=== PATIENT | female | born 1935 | race Caucasian/White ===

== ENCOUNTER 2024-05-29 10:30 | Emergency (ER) | payer MEDICARE, OTHER ==
[~2024-05-29] VITALS: Ht 165.1 cm; Wt 63.5 kg
[2024-05-29] MEDS ORDERED: SERT-439 PO (10:46)
[2024-05-29] MEDS ORDERED: ROSU20TA2 PO (10:46)
[2024-05-29] MEDS ORDERED: FENO145T21 PO (10:46)
[2024-05-29] MEDS ORDERED: APIX5TAB PO (10:46)
[2024-05-29] MEDS ORDERED: METF-886 PO (10:46)
[2024-05-29] MEDS ORDERED: FAMO40TA7 PO (10:46)
[2024-05-29] MEDS ORDERED: AMLO2.5T4 PO (10:46)
[2024-05-29] MEDS ORDERED: LOSA50TA39 PO (10:46)
[2024-05-29] MEDS: OXYCODONE/APAP 5-325 MG TABLET PO ONE (11:23)
[2024-05-29 11:26] LABS: BASOPHILS % (AUTO) 0.4 % (0.0-2.0); EOSINOPHILS # (AUTO) 0.1 K/uL (0.0-0.7); EOSINOPHILS % (AUTO) 1.4 % (0.0-7.0); HEMATOCRIT 39.3 % (31.2-41.9); HEMOGLOBIN 12.9 g/dL (10.9-14.3); LYMPHOCYTES # (AUTO) 1.6 K/uL (0.8-4.8); MEAN CORPUSCULAR HEMOGLOBIN 28.6 uug (24.7-32.8); MEAN CORPUSCULAR HGB CONC 33 g/dL (32.3-35.6); MEAN CORPUSCULAR VOLUME 86.7 fL (75.5-95.3); MONOCYTES # (AUTO) 0.4 K/uL (0.1-1.30); MONOCYTES % (AUTO) 7.1 % (0.0-11.0); NEUTROPHILS # (AUTO) 4.1 K/uL (1.8-8.9); NEUTROPHILS % (AUTO) 66.1 % (38.5-71.5); PLATELET COUNT (AUTO) 195 K/uL (179-408); RED BLOOD CELL COUNT(AUTO) 4.53 MIL/uL (3.63-4.92); RED CELL DISTRIBUTION WIDTH 14.2 % (12.3-17.7); WHITE BLOOD COUNT (AUTO) 6.3 K/uL (3.8-11.8)
[2024-05-29 11:29] LABS: ERYTHROCYTE SEDIMENTATION RATE 15 MM/HR (0-20)
[2024-05-29 11:38] LABS: CALCIUM 9.2 mg/dL (8.5-10.1); CARBON DIOXIDE 30 mmol/L (21-32); CHLORIDE 102 mmol/L (98-107); CREATININE 0.8 mg/dL (0.6-1.3); GLUCOSE 195 mg/dL (74-106); POTASSIUM 4.8 mmol/L (3.5-5.1); SODIUM SERUM 139 mmol/L (136-145); UREA NITROGEN, BLOOD 17 mg/dL (7-18)
[2024-05-29 11:42] LABS: MAGNESIUM 2.2 mg/dL (1.8-2.4)
[2024-05-29 13:00] LABS: *BILIRUBIN,URIN NEGATIVE (NEGATIVE); *BLOOD, URINE NEGATIVE (NEGATIVE); *CLARITY,URINE CLEAR (CLEAR); *COLOR,URINE YELLOW (YELLOW); *KETONES,URINE NEGATIVE (NEGATIVE); *PROTEIN,URINE NEGATIVE (NEGATIVE); *UROBILINOGEN,URINE 0.2 E.U./dl (NORMAL); LEUKOCYTE ESTERASE ,URINE NEGATIVE (NEGATIVE); NITRITE, URINE NEGATIVE (NEGATIVE); UGLUCOSE NEGATIVE (NEGATIVE)
[2024-05-29] MEDS ORDERED: ATEN25TA PO (13:24)
[2024-05-29] MEDS ORDERED: DILTIAZEM HCL 25 MG IV ONE (14:36)
[2024-05-29] MEDS: DILTIAZEM HCL 25 MG IV IV ONE (14:40)
[2024-05-29 15:11] VITALS: BP 101/76; O2SAT 96
== END 2024-05-29 15:13 | disposition home or self-care (01) ==
LOC: ER 10:30
DX: I48.91 Unspecified atrial fibrillation (principal); R51.9 Headache, unspecified; R11.0 Nausea; E11.9 Type 2 diabetes mellitus without complications; F32.A Depression, unspecified; Z79.01 Long term (current) use of anticoagulants; Z79.84 Long term (current) use of oral hypoglycemic drugs; Z79.899 Other long term (current) drug therapy; Z86.79 Personal history of other diseases of the circulatory system; Z87.39 Personal history of other diseases of the musculoskeletal system and connective tissue
CPT/HCPCS: 99285; 96374; 70450; 80048; 81003; 82607; 83735; 85025; 85651; 85730; 84484; 36415; 93005; J3490; A4606; A4663